=== PATIENT | male | born 1950 | race Caucasian/White ===

== ENCOUNTER 2017-08-12 16:25 | Emergency (ER) | payer BC, MEDICARE ==
[~2017-08-12] VITALS: Ht 165.1 cm; Wt 69.4 kg
[2017-08-12 16:55] VITALS: BP 164/86
[2017-08-12] MEDS ORDERED: ATORVASTATIN CA20 MG ORAL (16:59)
[2017-08-12] MEDS ORDERED: HYDROCHLOROTH12.5 M2 ORAL (18:46)
[2017-08-12 19:00] VITALS: BP 175/93
[2017-08-12] MEDS ORDERED: Norco 7.5mg/325mg tab ORAL ONE (19:00)
--- NOTE | 2017-08-12 22:37 | Emergency Room Report ---
History of Present Illness General Chief Complaint: Pain Source: Patient Present Illness HPI The patient is a 67-year-old male presenting for right lower leg swelling. He noticed pain and swelling around his right knee approximately one month prior. He states that symptoms have progressed and it is felt now at the right lower leg. He saw his primary doctor initially and had blood work done which she states was unremarkable. He then went to urgent care who told him to come to the emergency department. He denies any pain to the leg or knee. He denies any injury to the area. He denies history of smoking. He denies any other symptoms including back pain, numbness or tingling, rash, shortness of breath, CP, fever, chills Allergies: Coded Allergies: CIPROFLOXACIN (Verified Allergy, Unknown, 08/12/17) Patient History Past Medical History: see triage record Pertinent Family History: none Reviewed Nursing Documentation: PMH: Agreed, PSxH: Agreed Nursing Documentation-PMH Past Medical History: No History, Except For Review of Systems All Other Systems: negative except mentioned in HPI Physical Exam Vital Signs Date Time Temp Pulse Resp B/P (MAP) Pulse Ox O2 Delivery O2 Flow Rate FiO2 08/12/17 16:55 98.4 107 20 164/86 98 Room Air Sp02 EP Interpretation: reviewed, normal General Appearance: no apparent distress, alert, GCS 15, non-toxic Head: normocephalic, atraumatic Eyes: bilateral eye normal inspection, bilateral eye PERRL ENT: hearing grossly normal, normal pharynx, no angioedema, normal voice Neck: full range of motion, supple/symm/no masses Respiratory: chest non-tender, lungs clear, normal breath sounds, speaking full sentences Cardiovascular #1: regular rate, rhythm, no edema Musculoskeletal: back normal, gait/station normal, normal range of motion, swelling - R lower leg Neurologic: alert, oriented x3, responsive, motor strength/tone normal, sensory intact, speech normal Psychiatric: judgement/insight normal, memory normal, mood/affect normal, no suicidal/homicidal ideation Skin: normal color, no rash, warm/dry, well hydrated Medical Decision Making PA Attestation Dr. Baker is my supervising physician. Patient management was discussed with my supervising physician Diagnostic Impression: Primary Impression: Leg swelling ER Course The patient is a 67-year-old male presenting for right lower leg swelling. Ddx considered include but not limited to DVT, heart failure, gout, sprain/ strain, fracture, contusion, cellulitis, among others PE: No tachycardia or tachypnea RRR Lungs clear to auscultation bilaterally Right lower leg has 1+ pitting edema from the knee to the ankle. No skin changes. Non tender. Normal gait Venous duplex unremarkable. No DVT EKG and chest x-ray both unremarkable The patient is discharged home with prescription for hydrochlorothiazide and needs to followup with primary doctor as soon as possible. ER precautions are given EKG Diagnostic Results EP Interpretation: No acute changes Rate: normal - 91 Rhythm: NSR ST Segments: no acute changes ASA given to the pt in ED: No PA Scribe Text EKG was reviewed and read with my supervising physician. No acute ST segment changes are seen. Normal rate and rhythm. No acute changes. Chest X-Ray Diagnostic Results Chest X-Ray Diagnostic Results : Chest X-Ray Ordered: Yes # of Views/Limited/Complete: 1 View Indication: Other - leg swelling EP Interpretation: Yes PA Xray: Interpretation reviewed, by supervising MD, and agrees with findings. Interpretation: no consolidation, no effusion, no pneumothorax, no acute cardiopulmonary disease Impression: No acute disease Electronically Signed by: Aaron Youssef PA-C CT/MRI/US Diagnostic Results CT/MRI/US Diagnostic Results : Imaging Test Ordered: R leg venous duplex Impression No signs of DVT Last Vital Signs Date Time Temp Pulse Resp B/P (MAP) Pulse Ox O2 Delivery O2 Flow Rate FiO2 08/12/17 19:00 94 16 175/93 100 Room Air 08/12/17 16:55 98.4 Status: improved Disposition: HOME, SELF-CARE Condition: Improved Scripts Hydrochlorothiazide* (HYDROCHLOROTHIAZIDE*) 12.5 Mg Capsule 12.5 MG ORAL DAILY, #10 CAP Prov: AARON YOUSSEF 08/12/17 Patient Instructions: Lymphedema, Peripheral Edema Additional Instructions: I discussed my findings with the patient. All questions and concerns have been answered. Treatment and medication compliance have been addressed. I advised the patient that they need to follow up with primary doctor within 5 days. Return to ED if symptoms worsen, new symptoms arise, or if needed for any reason. Patient verbalized understanding of discharge instructions. AARON YOUSSEF Aug 12, 2017 22:37
--- NOTE | 2017-08-13 10:17 | Diagnostic Imaging Report ---
Indication: Cough Technique: XRAY Chest 1v Comparison: None Findings: Heart size and mediastinal contours are within normal limits given technique. There is no focal consolidation, pneumothorax or pleural effusion. Multilevel degenerative changes seen in the thoracic spine. Osseous structures demonstrate no acute abnormality. Impression: No radiographic evidence of acute cardiopulmonary disease.
--- NOTE | 2017-08-13 14:50 | Cardiology Report ---
APPROVED REPORT EKG Measurement Heart [id number] Normal sinus rhythm Normal ECG
--- NOTE | 2017-08-17 10:48 | Diagnostic Imaging Report ---
APPROVED REPORT CPT Code: 90334 Present Symptoms Comments: Right leg swelling RIGHT LEG: Venous imaging reveals a patent deep venous system. There is no evidence of thrombus within the femoral, popliteal or tibial segments. The greater saphenous vein is also within normal limits. Doppler indicates normal spontaneous flow within these segments.
== END 2017-08-12 19:00 | disposition home or self-care (01) ==
LOC: EMR 17:40
DX: M79.89 Other specified soft tissue disorders (principal); Z88.1 Allergy status to other antibiotic agents
CPT/HCPCS: 71010; 93005; 93971; 99284